=== PATIENT | male | born 1955 | race Caucasian/White ===

== ENCOUNTER 2019-02-21 10:10 | Emergency (ER) | payer OTHER ==
[2019-02-21] MEDS ORDERED: NA CHLORIDE 0.9% 1,000 ML ONE (10:42)
[2019-02-21] MEDS ORDERED: KETOROLAC 30 MG/ML INJ ONE (10:42)
[2019-02-21 10:58] LABS: Absolute Lymphocytes (CBC) 0.8 K/uL (0.7-4.9); Basophils % 0.6 % (0-1.3); Hematocrit 44.9 % (39.6-49.0); Lymphocytes % 5.8 % (15.3-44.8); MPV 8.3 fL (7.6-11.3); RBC Red Blood Cell Count 4.77 M/uL (4.33-5.43)
--- NOTE | 2019-02-21 11:03 | RAD REPORT ---
EXAM DESCRIPTION: CT - Stone Protocol - 02/21/2019 10:53 am CLINICAL HISTORY: Flank pain. FLANK PAIN COMPARISON: No comparisons TECHNIQUE: Axial images were obtained without oral or IV contrast. Lack of contrast limits solid org an and vascular assessment. The vxmuw-mm-hogl spans the entirety of the system partially obscuring uppermost abdomen and lung bases. Coronal reformatted images were obtained and reviewed. All CT scans are performed using dose optimization technique as appropriate and may include automated exposure control or mA/KV adjustment according to patient size. FINDINGS: The lower lung cruz are clear. Imaged portions of the liver and spleen show no suspicious findings on non-contrast imaging. The panc reas and adrenal glands are normal. No pathologic lymphadenopathy in the abdomen or pelvis. 5 mm stone (1300 HU) is present at the proximal right ureter near the right UPJ resulting in mild rig ht hydronephrosis. Additional bilateral nephrolithiasis is present with benign cysts in both kidneys also noted. No bowel obstruction, free air, free fluid or abscess. Normal appendix noted.Mild sigmoid diverticulo sis coli without diverticulitis. No significant bony abnormality. IMPRESSION: 5 mm stone at the right UPJ resulting in mild right hydronephrosis. Additional bilateral nephrolithiasis
[2019-02-21 11:15] LABS: Albumin 3.9 g/dL (3.4-5.0); Bilirubin Direct 0.2 mg/dL (0-0.2); Bilirubin Total 0.7 mg/dL (0.2-1.0); Protein, Total 7.9 g/dL (6.4-8.2)
[2019-02-21 11:19] LABS: Blood Morphology Comment NOT SEEN (NOT SEEN); Platelet Estimate ADEQ
--- NOTE | 2019-02-21 11:40 | ER ---
Nurse's Notes [facility] Name: Mitchell Xiong Age: 63 yrs Sex: Male : 1955 Arrival Date: 02/21/2019 Time: 10:12 Bed 5 Private MD: Parker Oneill Diagnosis: Calculus of kidney with calculus of ureter Presentation: 02/21 10:16 Presenting complaint: Patient states: right lower back pain and groin pain that began aa5 yesterday. Pt also reports nausea/vomiting. Denies difficulty urinating. Transition of care: patient was not received from another setting of care. Onset of symptoms was February 2019. Risk Assessment: Do you want to hurt yourself or someone else? Patient reports no desire to harm self or others. Initial Sepsis Screen: Does the patient meet any 2 criteria? No. Patient's initial sepsis screen is negative. Does the patient have a suspected source of infection? No. Patient's initial sepsis screen is negative. Care prior to arrival: None. 10:16 Acuity: ELINA 3 aa5 10:16 Method Of Arrival: Ambulatory aa5 Historical: - Allergies: 10:17 Morphine; aa5 - PMHx: 10:17 Diabetes - NIDDM; Hyperlipidemia; Hypertension; aa5 - PSHx: 10:17 None; aa5 - Immunization history:: Flu vaccine is not up to date. - Social history:: Smoking status: Patient/guardian denies using tobacco. - Ebola Screening: : No symptoms or risks identified at this time. Screenin:47 Abuse screen: Denies threats or abuse. Denies injuries from another. Nutritional hb screening: No deficits noted. Tuberculosis screening: No symptoms or risk factors identified. Fall Risk None identified. Assessment: 10:47 General: Appears in no apparent distress. Behavior is calm, cooperative. Pain: hb Complains of pain in right inguinal area and right low back Pain currently is 6 out of 10 on a pain scale. Neuro: Level of Consciousness is awake, alert, obeys commands, Oriented to person, place, time, situation. Cardiovascular: Capillary refill < 3 seconds. Respiratory: Airway is patent Respiratory effort is even, unlabored, Respiratory pattern is regular, symmetrical. GI: Abdomen is non-distended, Bowel sounds present X 4 quads. Abd is soft and non tender X 4 quads. : No signs and/or symptoms were reported regarding the genitourinary system. EENT: No signs and/or symptoms were reported regarding the EENT system. Derm: Skin is pink, warm \T\ dry. Musculoskeletal: No signs and/or symptoms reported regarding the musculoskeletal system. Vital Signs: 10:17 BP 185 / 86; Pulse 69; Resp 18 S; Temp 97.1(TE); Pulse Ox 96% on R/A; Weight 112.49 kg aa5 (R); Height 5 ft. 10 in. (177.80 cm) (R); Pain 7/10; 10:17 Body Mass Index 35.58 (112.49 kg, 177.80 cm) aa5 ED Course: 10:12 Patient arrived in ED. ag5 10:12 Parker Oneill MD is Private Physician. ag5 10:17 Triage completed. aa5 10:31 Jas Gamboa LVN is Primary Nurse. em 10:32 Cliff Johnson MD is Attending Physician. tw4 10:47 Arm band placed on. hb 10:47 Patient has correct armband on for positive identification. Placed in gown. Bed in low hb position. Call light in reach. Side rails up X 1. 10:58 CT Stone Protocol In Process Unspecified. EDMS 11:39 Parker Oneill MD is Referral Physician. tw4 11:39 Gema Stone MD is Referral Physician. tw4 11:53 No provider procedures requiring assistance completed. IV discontinued, intact, iw bleeding controlled, No redness/swelling at site. Pressure dressing applied. Administered Medications: 10:46 Drug: NS 0.9% 1000 ml Route: IV; Rate: 1 bolus; Site: left antecubital; hb 11:15 Follow up: Response: No adverse reaction; IV Status: Completed infusion; IV Intake: mg2 1000ml 10:46 Drug: TORadol 30 mg Route: IVP; Site: right antecubital; hb 11:15 Follow up: Response: No adverse reaction; Marked relief of symptoms mg2 Intake: 11:15 IV: 1000ml; Total: 1000ml. mg2 Outcome: 11:39 Discharge ordered by . tw4 11:53 Discharged to home ambulatory. iw 11:53 Condition: good 11:53 Discharge instructions given to patient, Instructed on discharge instructions, the need for admit, medication usage, Demonstrated understanding of instructions, follow-up care, medications, Prescriptions given X 3. 11:54 Patient left the ED. iw Signatures: Dispatcher [employer] Jas Nettles, RN RN Tegan Pinto RN RN iw Calderon, Audri, RN RN aa5 Isabel Suarez RN RN hb Wadley, Terrence, MD MD tw4 Ren Murdock RN RN [facility] Bayron Russell [facility]
--- NOTE | 2019-02-21 11:41 | EDPHYS ---
Physician Documentation [facility] Name: Mitchell Xiong Age: 63 yrs Sex: Male : 1955 Arrival Date: 02/21/2019 Time: 10:12 Bed 5 Private MD: Parker Oneill ED Physician Cliff Johnson HPI: 02/21 10:40 This 63 yrs old Male presents to ER via Ambulatory with complaints of tw4 Possible Kidney Stone. 10:40 The patient complains of pain in the right low back. The pain radiates to the right tw4 femoral area and right inguinal area. Onset: The symptoms/episode began/occurred yesterday. Modifying factors: The symptoms are alleviated by nothing. the symptoms are aggravated by nothing. Associated signs and symptoms: The patient has no apparent associated signs or symptoms. Severity of pain: At its worst the pain was moderate in the emergency department the pain is unchanged. The patient has not experienced similar symptoms in the past. Historical: - Allergies: 10:17 Morphine; aa5 - PMHx: 10:17 Diabetes - NIDDM; Hyperlipidemia; Hypertension; aa5 - PSHx: 10:17 None; aa5 - Immunization history:: Flu vaccine is not up to date. - Social history:: Smoking status: Patient/guardian denies using tobacco. - Ebola Screening: : No symptoms or risks identified at this time. ROS: 10:40 Constitutional: Negative for fever, chills, and weight loss, Eyes: Negative for injury, tw4 pain, redness, and discharge, Cardiovascular: Negative for chest pain, palpitations, and edema, Respiratory: Negative for shortness of breath, cough, wheezing, and pleuritic chest pain, Abdomen/GI: Negative for abdominal pain, nausea, vomiting, diarrhea, and constipation. 10:40 MS/Extremity: Negative for injury and deformity, Skin: Negative for injury, rash, and discoloration. 10:40 Back: Positive for flank pain, bilaterally. Exam: 10:40 Constitutional: This is a well developed, well nourished patient who is awake, alert, tw4 and in no acute distress. Head/Face: Normocephalic, atraumatic. Chest/axilla: Normal chest wall appearance and motion. Nontender with no deformity. No lesions are appreciated. Cardiovascular: Regular rate and rhythm with a normal S1 and S2. No gallops, murmurs, or rubs. Normal PMI, no JVD. No pulse deficits. Respiratory: Lungs have equal breath sounds bilaterally, clear to auscultation and percussion. No rales, rhonchi or wheezes noted. No increased work of breathing, no retractions or nasal flaring. Abdomen/GI: Soft, non-tender, with normal bowel sounds. No distension or tympany. No guarding or rebound. No evidence of tenderness throughout. Back: No spinal tenderness. No costovertebral tenderness. Full range of motion. MS/ Extremity: Pulses equal, no cyanosis. Neurovascular intact. Full, normal range of motion. Neuro: Awake and alert, GCS 15, oriented to person, place, time, and situation. Cranial nerves II-XII grossly intact. Motor strength 5/5 in all extremities. Sensory grossly intact. Cerebellar exam normal. Normal gait. Vital Signs: 10:17 BP 185 / 86; Pulse 69; Resp 18 S; Temp 97.1(TE); Pulse Ox 96% on R/A; Weight 112.49 kg aa5 (R); Height 5 ft. 10 in. (177.80 cm) (R); Pain 7/10; 10:17 Body Mass Index 35.58 (112.49 kg, 177.80 cm) aa5 MDM: 10:32 Patient medically screened. tw4 11:17 Data reviewed: vital signs, nurses notes, lab test result(s), CBC, white blood cell tw4 count, hemoglobin, hematocrit, platelets, electrolytes, sodium, potassium, chloride, serum bicarbonate, BUN, creatinine, serum glucose, hepatic panel, radiologic studies, CT scan. Counseling: I had a detailed discussion with the patient and/or guardian regarding: the historical points, exam findings, and any diagnostic results supporting the discharge/admit diagnosis, lab results, radiology results. 02/21 10:33 Order name: Basic Metabolic Panel; Complete Time: 11:16 tw4 02/21 11:16 Interpretation: Normal except: NA 132; GLUC 305; BUN 19; GFR 48; CRE 1.48; CL 97. tw4 02/21 10:33 Order name: CBC with Diff tw4 02/21 11:16 Interpretation: Normal except: WBC 14.1; MAME% 86.5; LYM% 5.8; NEUT A 12.2. 4 02/21 10:33 Order name: Creatinine for Radiology; Complete Time: 11:16 4 02/21 11:17 Interpretation: Abnormal: CRE 1.44; GFR 50. 02/21 10:33 Order name: Hepatic Function; Complete Time: 11:16 tw4 02/21 11:17 Interpretation: Normal except: GLOB 4.0; A/G 1.0. 02/21 10:33 Order name: Lipase; Complete Time: 11:16 tw4 02/21 11:17 Interpretation: Within normal limits: LIP 294. 02/21 11:20 Order name: Manual Differential; Complete Time: 11:38 EDMS 02/21 11:38 Interpretation: Normal except: SEGS 90; LYM 4. 02/21 10:33 Order name: IV Saline Lock; Complete Time: 10:46 tw4 02/21 10:33 Order name: Labs collected and sent; Complete Time: 10:46 02/21 10:33 Order name: CT Stone Protocol; Complete Time: 11:16 tw4 Administered Medications: 10:46 Drug: NS 0.9% 1000 ml Route: IV; Rate: 1 bolus; Site: left antecubital; hb 11:15 Follow up: Response: No adverse reaction; IV Status: Completed infusion; IV Intake: mg2 1000ml 10:46 Drug: TORadol 30 mg Route: IVP; Site: right antecubital; hb 11:15 Follow up: Response: No adverse reaction; Marked relief of symptoms mg2 Disposition: 02/21/19 11:39 Discharged to Home. Impression: Calculus of kidney with calculus of ureter. - Condition is Stable. - Discharge Instructions: Kidney Stones, Renal Colic. - Prescriptions for Ibuprofen 800 mg Oral Tablet - take 1 tablet by ORAL route every 8 hours As needed take with food; 30 tablet. Tylenol- Codeine #3 300-30 mg Oral Tablet - take 2 tablet by ORAL route every 6 hours As needed; 6 tablet. Flomax 0.4 mg Oral Capsule, Sust. Release 24 hr - take 1 capsule by ORAL route once daily 1/2 hour following the same meal each day; 30 capsule. - Medication Reconciliation Form, Thank You Letter, Antibiotic Education, Prescription Opioid Use form. - Follow up: Private Physician; When: Upon discharge from the Emergency Department; Reason: Recheck today's complaints, Continuance of care. Follow up: Parker Oneill MD; When: Upon discharge from the Emergency Department; Reason: Recheck today's complaints, Continuance of care. Follow up: Gema Stone MD; When: Upon discharge from the Emergency Department; Reason: Recheck today's complaints, Continuance of care. - Problem is new. - Symptoms have improved. Signatures: Dispatcher [employer] EDMS Tegan Victoria RN RN iw Alejandra Talbot RN RN aa5 Isabel Suarez RN RN Cliff Johnson MD MD tw4 Ren Murdock RN mg2 Corrections: (The following items were deleted from the chart) 11:54 11:39 02/21/2019 11:39 Discharged to Home. Impression: Calculus of kidney with calculus iw of ureter. Condition is Stable. Forms are Medication Reconciliation Form, Thank You Letter, Antibiotic Education, Prescription Opioid Use. Follow up: Private Physician; When: Upon discharge from the Emergency Department; Reason: Recheck today's complaints, Continuance of care. Follow up: Parker Oneill; When: Upon discharge from the Emergency Department; Reason: Recheck today's complaints, Continuance of care. Follow up: Gema Stone; When: Upon discharge from the Emergency Department; Reason: Recheck today's complaints, Continuance of care. Problem is new. Symptoms have improved. tw4
[2019-02-21 12:13] VITALS: BP 185/86; TEMP 97.1; O2SAT 96
== END 2019-02-21 11:54 | disposition home or self-care (01) ==
LOC: ER 10:10
DX: N20.2 Calculus of kidney with calculus of ureter (principal); Z88.6 Allergy status to analgesic agent
CPT/HCPCS: 85025; 80048; 36415; 80076; 83690; 76377; 74176; 96374; 99283; J7030